=== PATIENT | female | born 1990 | race Two or more races ===

== ENCOUNTER 2022-11-29 01:13 | Inpatient (IN) | payer OTHER ==
[~2022-11-29] VITALS: Ht 160 cm; Wt 103.0 kg
[2022-11-29] MEDS ORDERED: PRENATAL CAPLE1 EAC1 PO (01:46)
== END 2022-12-01 14:07 | disposition home or self-care (01) | DRG 807 ==
LOC: OB/GYN 01:13 → LDR 01:13 → OB/GYN 13:02
PROVIDERS: ADMIT Obstetrics & Gynecology; ATTEND Obstetrics & Gynecology
PROC: 10E0XZZ Delivery of Products of Conception, External Approach (ICD-10-PCS; principal; 2022-11-29)
PROC: 4A1HXCZ Monitoring of Products of Conception, Cardiac Rate, External Approach (ICD-10-PCS; 2022-11-29)
DX: O60.14X0 Preterm labor third trimester with preterm delivery third trimester, not applicable or unspecified (principal); Z37.0 Single live birth; Z3A.36 36 weeks gestation of pregnancy; Z20.822 Contact with and (suspected) exposure to COVID-19